=== PATIENT | male | born 1975 | race Caucasian/White ===

== ENCOUNTER 2024-10-31 15:01 | Emergency (ER) | payer OTHER, SELFPAY ==
[2024-10-31 15:09] VITALS: BP 167/91; PULSE 70; RESP 17; TEMP 36.6; O2SAT 98; BMI 26.7
--- NOTE | 2024-10-31 15:26 | EKG_ITS ---
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
--- NOTE | 2024-10-31 17:00 | DI.RAD.S_ITS ---
PROCEDURE: XR CHEST 2V INDICATIONS: Chest pain radiating to back TECHNIQUE: 2 views of the chest were acquired. COMPARISON: None. FINDINGS: Surgical changes and devices: None. Lungs and pleura: Poorly defined opacity can be seen within the right perihilar region. The left lung appears clear. No pneumothorax or pleural effusions are seen. Mediastinum: Mediastinal contours are normal. Heart size is normal. Bones and chest wall: No suspicious bony abnormalities. Soft tissues appear unremarkable. IMPRESSION: Poorly defined opacity can be seen within the right perihilar region. Differential diagnosis includes atelectasis or infiltrate. Please consider short-term follow-up versus CT for further evaluation. Dictated by: Tiago Moreno M.D. on 10/31/2024 at 16:48 Approved by: Tiago Moreno M.D. on 10/31/2024 at 16:48
[2024-10-31] MEDS: MAG HYDROX/ALUMINUM/SIMETH SUS 20 ML, LIDOCAINE VISCOUS 2% 15 ML PO (17:07)
--- NOTE | 2024-10-31 17:11 | ED_ITS ---
HPI - Chest Pain <LA Brooks - Last Filed: 10/31/24 18:14> General Chief Complaint: Chest Pain Stated Complaint: something stuck in esophagus Time Seen by Provider: 10/31/24 16:33 Source: patient Mode of arrival: Ambulatory History of Present Illness HPI narrative: 49-year-old male, former smoker, presents to the emergency department with sensation of foreign body in his esophagus x1 week. Patient does not recall any particular instance where food may have stuck, but recalls waking up with and having pain with swallowing. Patient denies the inability to drink, swallow water or food, but does endorse pain when doing so. Patient also endorses chest discomfort that radiates to his back only when swallowing. Patient does not appear in distress. Related Data Home Medications Medication Instructions Recorded Confirmed levothyroxine 175 mcg tablet 175 mcg PO QAM 10/31/24 10/31/24 Previous Rx's Medication Instructions Recorded omeprazole 40 mg capsule,delayed 40 mg PO DAILY Esophagitis #30 caps 10/31/24 release Allergies Allergy/AdvReac Type Severity Reaction Status Date / Time No Known Drug Allergies Allergy Verified 10/31/24 15:12 Review of Systems <LA Brooks - Last Filed: 10/31/24 18:14> Review of Systems Narrative: Narrative: See HPI. GENERAL: Denies chills, fatigue, fever, sweats. HEENT: Denies sinus pain, ear pain, sore throat, dizziness. Endorses painful swallowing. RESPIRATORY: Denies dyspnea, cough, wheezing, sputum. CARDIOVASCULAR: Denies palpitations, edema. Endorses midsternal chest pain when swallowing only. GASTROINTESTINAL: Denies nausea, vomiting, abdominal pain, diarrhea, constipation. MSK: Denies weakness, joint pain, or bony pain. SKIN: Denies rash, skin lesions, or pruritis. NEUROLOGIC: Denies weakness, dizziness, headache, numbness, confusion. Patient History <LA Brooks - Last Filed: 10/31/24 18:14> Social History Smoking Status: Former smoker Smoking Status: Former smoker Exam <LA Brooks - Last Filed: 10/31/24 18:14> Narrative Exam Narrative: Exam Narrative: GENERAL: This is a well-nourished, well-developed patient, in no acute distress. HEAD: Atraumatic. Normocephalic. EYES: Pupils equal round and reactive. No scleral icterus, injection or drainage. ENT: Nose without bleeding, purulent drainage. Throat without erythema, tonsillar hypertrophy or exudate. Uvula midline. Airway patent. NECK: Trachea midline. No JVD or lymphadenopathy. Nontender. CARDIOVASCULAR: Regular rate and rhythm without murmurs, peripheral pulses intact, cap refill <2 sec. RESPIRATORY: Breath sounds equal and clear bilaterally. No wheezes, rales, or rhonchi. No cough. No increased respiratory effort. No accessory muscle use. MSK: Moves all extremities. Normal range of motion, no clubbing or edema. Neurovascularly intact. NEURO: A&O x 3. SKIN: Warm, dry, no rashes or lesions noted. Initial Vital Signs Initial Vital Signs: Vital Signs Temperature 98 F 10/31/24 15:09 Pulse Rate 70 10/31/24 15:09 Respiratory Rate 17 10/31/24 15:09 Blood Pressure 167/91 H 10/31/24 15:09 Pulse Oximetry 98 10/31/24 15:09 Oxygen Delivery Method Room Air 10/31/24 15:09 Reviewed <Wen Mancilla DO - Last Filed: 11/02/24 18:23> Initial Vital Signs Initial Vital Signs: Vital Signs Temperature 98 F 10/31/24 15:09 Pulse Rate 70 10/31/24 15:09 Respiratory Rate 17 10/31/24 15:09 Blood Pressure 167/91 H 10/31/24 15:09 Pulse Oximetry 98 10/31/24 15:09 Oxygen Delivery Method Room Air 10/31/24 15:09 Course <LA Brooks - Last Filed: 10/31/24 18:14> Orders Ordered: Discontinued Medications Al Hydrox/Mg Hydrox/Simethicone 20 ml/ Lidocaine HCl 15 ml 0 ml PO NOW ONE Stop: 10/31/24 17:02 Last Admin: 10/31/24 17:07 Dose: 35 ml Documented By: Vital Signs Vital signs: Vital Signs - 8 hr 10/31/24 15:09 Temperature 98 F Pulse Rate 70 Respiratory Rate 17 Blood Pressure 167/91 H Pulse Oximetry 98 Oxygen Delivery Method Room Air <Wen Mancilla DO - Last Filed: 11/02/24 18:23> Orders Ordered: Discontinued Medications Al Hydrox/Mg Hydrox/Simethicone 20 ml/ Lidocaine HCl 15 ml 0 ml PO NOW ONE Stop: 10/31/24 17:02 Last Admin: 10/31/24 17:07 Dose: 35 ml Documented By: Vital Signs Vital signs: Vital Signs - 8 hr 10/31/24 15:09 Temperature 98 F Pulse Rate 70 Respiratory Rate 17 Blood Pressure 167/91 H Pulse Oximetry 98 Oxygen Delivery Method Room Air MDM - Chest Pain <LA Brooks - Last Filed: 10/31/24 18:14> Differential Diagnosis Differential diagnosis: Likely chest pain and other (Sensation of foreign body in esophagus) Imaging Data Chest x-ray: Radiologist's Impression: Close Chest X-Ray (Signed) Tiago Moreno - 10/31/24 Launch?[address] [address] XRay Report Signed Patient: Alisha Joshi MR#: [id number] : 1975 Acct:[id number] Age/Sex: 49 / M Date of Service: 10/31/24 Loc: ED Accession Number: [id number] Procedure: XR chest 2V Ordering Provider: cA Cronin PROCEDURE: XR CHEST 2V INDICATIONS: Chest pain radiating to back TECHNIQUE: 2 views of the chest were acquired. COMPARISON: None. FINDINGS: Surgical changes and devices: None. Lungs and pleura: Poorly defined opacity can be seen within the right perihilar region. The left lung appears clear. No pneumothorax or pleural effusions are seen. Mediastinum: Mediastinal contours are normal. Heart size is normal. Bones and chest wall: No suspicious bony abnormalities. Soft tissues appear unremarkable. IMPRESSION: Poorly defined opacity can be seen within the right perihilar region. Differential diagnosis includes atelectasis or infiltrate. Please consider short-term follow-up versus CT for further evaluation. Dictated by: Tiago Moreno M.D. on 10/31/2024 at 16:48 Approved by: Tiago Moreno M.D. on 10/31/2024 at 16:48 [facility] Narrative Medical decision making narrative: 49-year-old male with sensation of foreign body in esophagus. Clinical findings were not suggestive of complete occlusion. Will obtain chest x-ray and trial a GI cocktail. Chest x-ray revealed a poorly defined opacity that could be atelectasis or infiltrate, but patient is not experiencing any breathing difficulties. Symptoms improved with GI cocktail and will therefore diagnose as esophagitis. Prescription for omeprazole provided. Discussed plan of care and return precautions with patient, who verbalized understanding and was agreeable with course of action. Discharge Plan Departure Patient Disposition: Home Clinical Impression: Esophagitis Instructions: DI for Esophagitis Activity Restrictions/Additional Instructions: *You have been diagnosed with esophagitis. Your chest x-ray did not reveal anything concerning, but return to the emergency room immediately for any worsening symptoms such as inability to swallow, chest pain, difficulty breathing or intolerable pain.. I believe your symptoms are from stomach acid entering your lower esophagus. I will prescribe a short course of a stomach acid vocational training director that may allow your esophagus to heal. *What to do: *Please continue to take your regular medications as directed. [ x] New medication prescriptions sent to your pharmacy: [[facility]] [ ] New medication written as a paper prescription [ ] No new medications given *Please follow up with your primary care provider in 2-3 days, call for an appointment. Let them know you were seen in the Emergency Department and that we ask that you be seen in follow up. We will electronically transmit a record of today's note if your PCP is in our system *If you do not have a primary care provider please contact the [facility] Resource line at [phone]. They will ask some questions about your medical history and help get you set up with a doctor in the community. ? Return to ER if you should have any new, worsening or concerning symptoms, such as worsening pain, severe headache, confusion, chest pain, difficulty breathing, fever greater than 101 F, shaking chills, persistent vomiting to the point that you cannot drink fluids, or other new or worsening symptoms. Prescriptions: New omeprazole 40 mg capsule,delayed release(DR/EC) 40 mg PO DAILY Qty: 30 0RF No Action levothyroxine 175 mcg tablet 175 mcg PO QAM Referrals: Miscellaneous,[facility] [Primary Care Provider] - Stand Alone Forms: Patient Portal/API/Survey ED Sign-out <Wen Mancilla DO - Last Filed: 11/02/24 18:23> Cosign ED Attending Cosignature Attestation: I was available for consultation.
== END 2024-10-31 18:17 | disposition home or self-care (01) ==
PROVIDERS: Emergency Provider Registered Nurse
DX: R07.9 Chest pain, unspecified (principal); K20.90 Esophagitis, unspecified without bleeding
CPT/HCPCS: 71046; 93005; 99283; 99284